=== PATIENT | male | born 1935 | race Caucasian/White ===

== ENCOUNTER 2019-03-08 10:50 | Outpatient (RCR) | payer MEDICARE, SELFPAY ==
[2019-03-08 10:57] VITALS: BMI 29.5
[2019-03-08 10:58] VITALS: BMI 29.5
== END 2019-06-06 23:59 | disposition home or self-care (01) ==
LOC: ANHDMC 10:50
PROVIDERS: PCP Family Medicine; Visit Provider Surgery
DX: E11.9 Type 2 diabetes mellitus without complications (principal); E66.9 Obesity, unspecified; Z71.3 Dietary counseling and surveillance
CPT/HCPCS: 97803

== ENCOUNTER 2021-01-06 18:59 | Emergency (ER) | payer MEDICARE, SELFPAY ==
[2021-01-06 19:01] VITALS: BP 172/62; PULSE 69; RESP 18; TEMP 36.7; O2SAT 100
--- NOTE | 2021-01-06 19:12 | ED.SKABFB ---
HPI - Skin/Abscess/Foreign Bdy General Chief complaint: Skin/Abscess/Foreign Body Stated complaint: rash Time Seen by Provider: 01/06/21 19:05 Source: patient Mode of arrival: ambulatory Limitations: no limitations History of Present Illness HPI narrative: This is a 85-year-old male that presents to the emergency department for a rash x2 days. Reports the painful, burning rash to the left flank and abdomen. He did not receive a shingles vaccine. Denies fever. Related Data Home Medications Medication Instructions Recorded Confirmed cholecalciferol (vitamin D3) 25 25 mcg PO DAILY 11/14/19 01/02/21 mcg (1,000 unit) capsule finasteride 5 mg tablet 5 mg PO DAILY 11/14/19 01/02/21 tamsulosin 0.4 mg capsule 0.4 mg PO DAILY 11/14/19 01/02/21 Allergies Allergy/AdvReac Type Severity Reaction Status Date / Time erythromycin base Allergy Unknown Hives Verified 01/02/21 14:44 levofloxacin Allergy Unknown unknown Verified 01/02/21 14:44 Review of Systems Review of Systems: CONSTITUTIONAL: Denies fever SKIN: Reports rash and itching. All systems reviewed & are unremarkable except as noted in HPI and below PMFSH Past Medical History Medical History BPH (benign prostatic hyperplasia) CKD (chronic kidney disease) stage 3, GFR 30-59 ml/min HTN (hypertension) Type 2 diabetes mellitus without complications Social History Social History Years smoked: 20 Smoking status: Never smoker Tobacco type: pipe and cigars Second hand tobacco smoke exposure: Yes Smoking end date: 05/04/06 Alcohol intake: current Drinks per week: 0 Alcohol use details: 1-2/mo Substance use: never Substance use type: does not use Gender identity (if verbalized by the patient): Male Spiritual care concerns: No Exam Narrative: GENERAL: Well-appearing, well-nourished, and in no acute distress. HEAD: Normocephalic, atraumatic. EYES: EOMI. EXTREMITIES: Normal range of motion. No edema. SKIN: Warm, dry. Red, papular rash present to the left flank and abdomen in a dermatomal pattern NEURO: No focal deficits. Alert and oriented x3. PSYCH: Normal mood and affect Course Vital Signs Vital signs: Vital Signs Temperature 98.1 F 01/06/21 19:01 Pulse Rate 69 01/06/21 19:01 Respiratory Rate 18 01/06/21 19:01 Blood Pressure 172/62 H 01/06/21 19:01 Pulse Oximetry 100 01/06/21 19:01 Temperature 98.1 F 01/06/21 19:01 Pulse Rate 69 01/06/21 19:01 Respiratory Rate 18 01/06/21 19:01 Blood Pressure 172/62 H 01/06/21 19:01 Pulse Oximetry 100 01/06/21 19:01 MDM - Skin/Abscess/Foreign Bdy MDM Narrative Medical decision making narrative: Patient presents to the emergency department for a rash that is consistent with shingles. Patient will be started on Valtrex. He was instructed on care of this. He is to follow-up with his primary care doctor. He was given warnings to return to the ER Critical Care Time Critical Care Time Critical Care Time: No Discharge Plan Discharge Clinical Impression: Herpes zoster Qualifiers: Herpes zoster complications: without complications Qualified Code(s): B02.9 - Zoster without complications Patient Disposition: Home, Self-Care Condition: Stable Instructions: Shingles (ED) Additional Instructions: Return to the emergency department if you experience fever, abnormal drainage from your rash, or any other symptoms that are concerning to you Keep your rash clean, dry and covered. Take valacyclovir as prescribed Follow-up with your primary care doctor Prescriptions: New valacyclovir 1 gram tablet 1,000 mg PO Q8H 7 Days Qty: 21 RF: 0 No Action tamsulosin 0.4 mg capsule 0.4 mg PO DAILY RF: 0 finasteride 5 mg tablet 5 mg PO DAILY RF: 0 cholecalciferol (vitamin D3) 25 mcg (1,000 unit) capsule 25 mcg PO DAILY RF: 0 (
[2021-01-06] MEDS: valACYclovir HCL 500 MG TABLET 1000 MG PO (19:50)
--- NOTE | 2021-01-06 19:55 | PC.NURSE ---
Pt reports left lateral burning rash and redness x 1 day. no open areas. no other concerns.
== END 2021-01-06 19:58 | disposition home or self-care (01) ==
PROVIDERS: Emergency Provider Emergency Medicine; PCP Family Medicine
DX: B02.9 Zoster without complications (principal); I12.9 Hypertensive chronic kidney disease with stage 1 through stage 4 chronic kidney disease, or unspecified chronic kidney disease; E11.22 Type 2 diabetes mellitus with diabetic chronic kidney disease; N18.30 Chronic kidney disease, stage 3 unspecified; N40.0 Benign prostatic hyperplasia without lower urinary tract symptoms; Z79.84 Long term (current) use of oral hypoglycemic drugs
CPT/HCPCS: 99283; A9270

== ENCOUNTER → 2021-01-28 15:01 | Outpatient (CLI) | payer MEDICARE, SELFPAY ==
--- NOTE | ~2021-01-28 | XR_ITS ---
XR hip LT min 2V DATE: 01/28/2021 15:24 INDICATION: Left hip pain TECHNIQUE: AP and lateral views COMPARISON: None FINDINGS: There is moderately severe left hip osteoarthritis including spurring of the acetabulum and femoral head. No fracture, dislocation, avascular necrosis or bone destruction is detected. The pubic symphysis and left sacroiliac joint are intact. IMPRESSION: Moderately severe left hip osteoarthritis Reviewed, dictated and finalized at location B.
== END ==
PROVIDERS: PCP Family Medicine; Visit Provider Family Medicine
DX: M25.552 Pain in left hip (principal); M16.12 Unilateral primary osteoarthritis, left hip
CPT/HCPCS: 73502